=== PATIENT | male | born 1965 | race Caucasian/White ===

== ENCOUNTER 2019-10-12 18:20 | Emergency (ER) | payer BC ==
[2019-10-12] MEDS ORDERED: Tylenol #3 Tablet PO ONE (18:34)
[2019-10-12] MEDS ORDERED: TORAdol 30 mg Injection IM ONE (18:35)
[2019-10-12] MEDS ORDERED: TORAdol 30 mg Injection ONE (18:39)
[2019-10-12] MEDS ORDERED: Tylenol #3 Tablet ONE (18:40)
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
[2019-10-12 19:27] VITALS: BP 157/86; PULSE 74; O2SAT 100
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
== END 2019-10-12 19:27 | disposition home or self-care (01) ==
LOC: ED 18:20
DX: R07.81 Pleurodynia (principal)
CPT/HCPCS: 71046; 71100; 96372; 99284; J1885; A9270-GY